=== PATIENT | female | born 1960 | race Native Hawaiian/Other Pacific Islander ===

== ENCOUNTER 2016-09-09 10:59 | Emergency (ER) | payer BC ==
[~2016-09-09] VITALS: Ht 157.5 cm; Wt 77.1 kg
[2016-09-09] MEDS ORDERED: ZESTRIL40 MG OR (11:07)
== END 2016-09-09 11:25 | disposition home or self-care (01) ==
LOC: ED 10:59
DX: K64.8 Other hemorrhoids (principal); K62.5 Hemorrhage of anus and rectum
CPT/HCPCS: 82272; 99282